=== PATIENT | female | born 1985 | race Caucasian/White ===

== ENCOUNTER 2020-12-21 17:43 | Emergency (ER) | payer OTHER ==
[~2020-12-21 17:43] MED LIST: ESTRACE0.5 MG PO; IBUPROFEN800 MG PO; LASIX40 MG PO
[2020-12-22] MEDS ORDERED: CEPHALEXIN500 MG PO (22:26)
== END 2020-12-21 19:14 | disposition home or self-care (01) ==
LOC: FER 17:43
DX: S81.801A Unspecified open wound, right lower leg, initial encounter (principal); R11.0 Nausea; R53.83 Other fatigue; X58.XXXA Exposure to other specified factors, initial encounter; Z53.8 Procedure and treatment not carried out for other reasons

== ENCOUNTER 2020-12-22 19:17 | Emergency (ER) | payer OTHER ==
[2020-12-22 21:06] LABS: BASOPHIL 0.3 % (0-2); EOSINOPHIL 1.9 % (0-5); HCT 35.9 % (37.0-47.0); HGB 12.6 g/dl (12.5-16.0); MCH 30.6 pg (25.0-31.0); MCHC 35.1 g/dL (32.0-36.0); MCV 87.1 fL (78.0-100.0); MONOCYTE 6.5 % (0-12); NEUTROPHIL 47.3 % (41-80); NRBC 0; PLT 253 K/uL (150-400); RBC 4.12 M/uL (4.20-5.40); RDW 11.9 % (11.5-14.0); WBC 5.8 K/uL (4.0-10.5)
[2020-12-22 21:31] LABS: ALBUMIN 3.7 g/dL (3.4-5.0); BILIRUBIN - TOTAL 0.3 mg/dL (0.2-1.0); BUN/CREAT RATIO (CALC) 26.2 RATIO; CREATININE 0.65 mg/dL (0.51-0.95); GLOBULIN (CALCULATION) 3.3 g/dL; POTASSIUM 3.3 mmol/L (3.5-5.1)
[2020-12-22] MEDS ORDERED: CEPHALEXIN500 MG PO (22:26)
== END 2020-12-23 02:50 | disposition home or self-care (01) ==
LOC: FER 19:17
PROVIDERS: Physician Assistant
DX: S91.001A Unspecified open wound, right ankle, initial encounter (principal); L08.9 Local infection of the skin and subcutaneous tissue, unspecified; J45.909 Unspecified asthma, uncomplicated; F17.210 Nicotine dependence, cigarettes, uncomplicated; Z89.421 Acquired absence of other right toe(s); X58.XXXA Exposure to other specified factors, initial encounter
CPT/HCPCS: 36415; 73610; 73630; 80053; 85025; J0696; J1200; J2930

== ENCOUNTER 2021-01-27 13:46 | Emergency (ER) | payer OTHER ==
[~2021-01-27 13:46] MED LIST changes: +CEPHALEXIN500 MG PO
[2021-01-27 15:06] LABS: BASOPHIL 0.1 % (0-2); EOSINOPHIL 0.3 % (0-5); HCT 43.3 % (37.0-47.0); HGB 15.1 g/dl (12.5-16.0); LYMPHOCYTE 10.2 % (15-48); MCH 29.9 pg (25.0-31.0); MCHC 34.9 g/dL (32.0-36.0); MCV 85.7 fL (78.0-100.0); MPV 10.4 fL (6.0-9.5); NRBC 0; PLT 252 K/uL (150-400); RBC 5.05 M/uL (4.20-5.40); RDW 11.9 % (11.5-14.0); WBC 10.7 K/uL (4.0-10.5)
[2021-01-27 15:20] LABS: ALBUMIN 4.3 g/dL (3.4-5.0); BILIRUBIN - TOTAL 0.5 mg/dL (0.2-1.0); BUN/CREAT RATIO (CALC) 24.6 RATIO; CREATININE 0.61 mg/dL (0.51-0.95); GLOBULIN (CALCULATION) 3.4 g/dL; POTASSIUM 3.4 mmol/L (3.5-5.1); TOTAL PROTEIN 7.7 g/dL (6.4-8.2)
[2021-01-27 15:32] LABS: BILIRUBIN 1+ mg/dL (NEGATIVE); BLOOD TRACE-INTACT Ery/uL (NEGATIVE); CLARITY CLEAR (CLEAR); COLOR YELLOW (YELLOW); GLUCOSE (U) NORMAL (NORMAL); LEUKOCYTES NEGATIVE Leu/uL (NEGATIVE); NITRITE NEGATIVE (NEGATIVE); PROTEIN NEGATIVE (NEGATIVE); SPECIFIC GRAVITY 1.025 (1.001-1.030)
[2021-01-27 15:38] LABS: AMORPHOUS URATES CRYSTALS MODERATE; BACTERIA TRACE; MUCOUS MODERATE
[2021-01-27 15:49] LABS: CORONAVIRUS 2019 SARS-COV-2 NEGATIVE (NEGATIVE); INFLUENZA A NAA NEGATIVE (NEGATIVE)
[2021-01-27] MEDS ORDERED: PEPCID AC20 MG PO (17:52)
[2021-01-27] MEDS ORDERED: ZOFRAN4 M1 PO (17:52)
== END 2021-01-27 18:23 | disposition home or self-care (01) ==
LOC: FER 13:46
PROVIDERS: Physician Assistant
DX: J06.9 Acute upper respiratory infection, unspecified (principal); R10.13 Epigastric pain; R11.2 Nausea with vomiting, unspecified; F17.210 Nicotine dependence, cigarettes, uncomplicated; Z20.822 Contact with and (suspected) exposure to COVID-19
CPT/HCPCS: 36415; 80053; 81001; 83690; 85025; J2405; J7030; U0002

== ENCOUNTER 2021-07-05 14:50 | Emergency (ER) | payer OTHER ==
[~2021-07-05 14:50] MED LIST changes: +PEPCID AC20 MG PO; +ZOFRAN4 M1 PO
[2021-07-05 15:40] LABS: BASOPHIL 0.7 % (0-2); EOSINOPHIL 1.4 % (0-5); HCT 37.8 % (37.0-47.0); LYMPHOCYTE 52.2 % (15-48); MCH 30.6 pg (25.0-31.0); MCHC 34.4 g/dL (32.0-36.0); MCV 88.9 fL (78.0-100.0); MONOCYTE 5.8 % (0-12); MPV 10.6 fL (6.0-9.5); NEUTROPHIL 39.2 % (41-80); NRBC 0; PLT 196 K/uL (150-400); RBC 4.25 M/uL (4.20-5.40); WBC 5.9 K/uL (4.0-10.5)
[2021-07-05 15:41] LABS: BILIRUBIN NEGATIVE (NEGATIVE); BLOOD NEGATIVE Ery/uL (NEGATIVE); CLARITY CLOUDY (CLEAR); COLOR YELLOW (YELLOW); GLUCOSE (U) NORMAL (NORMAL); LEUKOCYTES 2+ Leu/uL (NEGATIVE); NITRITE NEGATIVE (NEGATIVE); PROTEIN NEGATIVE (NEGATIVE)
[2021-07-05 15:51] LABS: BUN/CREAT RATIO (CALC) 17.5 RATIO; CREATININE 0.57 mg/dL (0.51-0.95); POTASSIUM 3.4 mmol/L (3.5-5.1)
[2021-07-05 15:54] LABS: AMORPHOUS PHOSPHATE CRYSTALS LARGE; BACTERIA 1+; SPERM PRESENT; URINARY RBC RARE
[2021-07-05] MEDS ORDERED: BACTRIM DS TAB1 EACH PO (17:04)
[2021-07-05] MEDS ORDERED: ONDANSETRON HCL4 MG PO (17:04)
== END 2021-07-05 18:30 | disposition home or self-care (01) ==
LOC: FER 14:50
PROVIDERS: Nurse Practitioner Family
DX: R51.9 Headache, unspecified (principal); N39.0 Urinary tract infection, site not specified; F17.210 Nicotine dependence, cigarettes, uncomplicated
CPT/HCPCS: 36415; 80048; 81001; 85025; 87088; J1100; J1885; J2405; J7030

== ENCOUNTER 2021-12-04 19:17 | Emergency (ER) | payer OTHER ==
[~2021-12-04 19:17] MED LIST changes: +BACTRIM DS TAB1 EACH PO; +ONDANSETRON HCL4 MG PO
[2021-12-05] MEDS ORDERED: CEPHALEXIN500 MG PO (03:38)
[2021-12-05] MEDS ORDERED: NORCO 5-325 TA1 EACH PO (03:38)
== END 2021-12-05 04:00 | disposition home or self-care (01) ==
LOC: FER 19:17
DX: I89.0 Lymphedema, not elsewhere classified (principal); L03.116 Cellulitis of left lower limb; L03.115 Cellulitis of right lower limb; F17.290 Nicotine dependence, other tobacco product, uncomplicated
CPT/HCPCS: 73620; J0696